=== PATIENT | male | born 1990 | race Two or more races ===

== ENCOUNTER 2023-02-27 19:39 | Emergency (ER) | payer BC ==
[~2023-02-27] VITALS: Ht 238.8 cm; Wt 116.1 kg
--- NOTE | 2023-02-27 20:00 | NUR ---
PT AMB TO [facility] WITH C/O ABD PAIN, 11/19.
--- NOTE | 2023-02-27 20:13 | NUR ---
Patient ambulated with steady gait. A/Ox4, speech is clear speaks in complete sentences. No acute neuro deficits. Patient c/o LUQ abd pain x2 days with intermittent constipation. He has a sharp pain 4/10, and the pain exacerbates after meals. The patient stated that he is currently taking Wegovy for weight loss. The patient denies any chest pain, denies shortness of breath. He denies any n/v/d. Patient in bed at lowest position, sr upx2, call light within reach. Safety precautions implemented per protocol.
--- NOTE | 2023-02-27 20:21 | NUR ---
ERMD at bedside for MSE.
[2023-02-27 20:38] LABS: HEMATOCRIT 49.4 % (36.7-47.1); MEAN CORPUSCULAR HEMOGLOBIN 29.5 uug (23.8-33.4); MEAN CORPUSCULAR VOLUME 86.7 fL (73.0-96.2); PLATELET COUNT (AUTO) 225 K/uL (152-348)
[2023-02-27 20:51] LABS: POTASSIUM 4.2 mmol/L (3.5-5.1)
[2023-02-27 20:56] LABS: BILIRUBIN,DIRECT 0.2 mg/dL (0.0-0.2); BILIRUBIN,TOTAL 1.1 mg/dL (0.2-1.0); TOTAL PROTEIN, SERUM 7.7 g/dL (6.4-8.2)
--- NOTE | 2023-02-27 21:09 | NUR ---
Patient discharged to home in stable condition. Written and verbal after care instructions given. Patient verbalizes understanding of instructions. Stressed follow up or return to ER for worsening s/s. Patient is A/Ox4, able to ambulate with steady gait. All belongings returned to patient prior to departure.
[2023-02-27 21:17] VITALS: BP 135/87; O2SAT 98
== END 2023-02-27 21:18 | disposition home or self-care (01) ==
LOC: ER 19:39
DX: R10.12 Left upper quadrant pain (principal)
CPT/HCPCS: 36415; 83690; 85025; A4663